=== PATIENT | female | born 1950 | race Caucasian/White ===

== ENCOUNTER → 2021-08-22 | Outpatient (CLI) | payer MEDICARE, OTHER ==
[2021-08-22 11:52] LABS: HCT 43.6 % (34.0-46.0); HGB 14.8 gm/dL (11.4-16.0); MCH 35.4 pg (25.0-35.0); MCV 104.1 fL (80.0-100.0); Macrocytosis Slight; Platelet Count 189 k/uL (150-450); RBC 4.19 m/uL (3.80-5.40); RDW 14.3 % (11.5-15.5); WBC 5.6 k/uL (3.8-10.6)
[2021-08-22 11:53] LABS: INR 0.9 (<1.2); Partial Thromboplastin Time 23.1 sec (22.0-30.0); Prothrombin Time 10.2 sec (9.0-12.0)
[2021-08-22 11:59] LABS: Albumin 3.8 g/dL (3.5-5.0); Calcium 9.4 mg/dL (8.4-10.2); Potassium 4.7 mmol/L (3.5-5.1); Total Bilirubin 0.6 mg/dL (0.2-1.3); Total Protein 6.3 g/dL (6.3-8.2)
[2021-08-22 12:42] LABS: Appearance,Urine Cloudy (Clear); Bacteria,Urine Rare /hpf; Bilirubin,Urine Negative (Negative); Blood,Urine Negative (Negative); Calcium Oxalate Crystals,Urine Occasional /hpf; Color,Urine Yellow; Glucose,Urine (UA) Negative (Negative); Ketones,Urine 1+ (Negative); Leukocyte Esterase,Urine Trace (Negative); Mucus,Urine Rare /hpf; Nitrite,Urine Negative (Negative); PH, Urine 6.5 (5.0-8.0); Protein,Urine Trace (Negative); RBC,Urine 3 /hpf (0-5); Specific Gravity,Urine 1.024 (1.001-1.035); Squamous Epithelial Cell,Urine 3 /hpf (0-4); Urobilinogen,Urine <2.0 mg/dL (<2.0); WBC,Urine 3 /hpf (0-5)
== END | disposition home or self-care (01) ==
LOC: LABPAT 10:04
PROVIDERS: ATTEND Orthopaedic Surgery
DX: Z01.812 Encounter for preprocedural laboratory examination (principal)
CPT/HCPCS: 80053; 81001; 85027; 85610; 85730; 87070

== ENCOUNTER → 2021-08-22 | Outpatient (CLI) | payer MEDICARE, OTHER | END | disposition home or self-care (01) | LOC: LABWHC1 10:10 | PROVIDERS: ATTEND Family Medicine | DX: E11.9 Type 2 diabetes mellitus without complications (principal); Z79.4 Long term (current) use of insulin | CPT/HCPCS: 36415; 83036; 84550 ==

== ENCOUNTER 2021-09-02 08:01 | Day surgery (SDC) | payer MEDICARE, OTHER ==
[2021-08-25 14:44] VITALS: BMI 38.9
[~2021-09-02 08:01] MED LIST: ACETAMINOPHEN TAB 500 MG TAB PO PRN; GABAPENTIN 300 MG CAP PO PRN; LACTATED RINGERS 1,000 ML IV SCH; MELOXICAM 7.5 MG TAB PO PRN; TRANEXAMIC ACID 1,000 MG in SODIUM CHLORIDE 0.9% 100 ML IVPB PRN
[2021-09-02] MEDS ORDERED: ONDANSETRON 4 MG/2 ML VIAL ONE (08:40)
[2021-09-02] MEDS ORDERED: ONDANSETRON 4 MG/2 ML VIAL IVP ONE ×2 (08:45)
[2021-09-02] MEDS ORDERED: DEXAMETHASONE SOD PHOSPHATE 4 MG/ML 1 ML VIAL IV ONE ×2 (08:45)
[2021-09-02 08:50] LABS: Glucose,Whole Blood 150 mg/dL (75-99)
[2021-09-02] MEDS ORDERED: SODIUM CHLORIDE 0.9% 100 ML BAG ONE (09:00)
[2021-09-02] MEDS ORDERED: SODIUM CHLORIDE 0.9% IRRIG 1,000 ML BTL IRRIGATION ONE (09:00)
[2021-09-02] MEDS ORDERED: ROCURONIUM 10 MG/ML (5 ML VIAL) IV ONE (09:00)
[2021-09-02] MEDS ORDERED: HEPARIN SODIUM,PORCINE 10,000 UNIT/ML 1 ML VIAL ONE (09:00)
[2021-09-02] MEDS ORDERED: GLYCOPYRROLATE 0.2 MG/ML 2 ML VIAL ONE (09:00)
[2021-09-02] MEDS ORDERED: TRANEXAMIC ACID 1,000 MG/10 ML VIAL ONE (09:00)
[2021-09-02] MEDS ORDERED: fentaNYL (PF) 50 MCG/ML 2 ML AMP ONE (09:00)
[2021-09-02] MEDS ORDERED: LIDOCAINE 1% INJ 10MG/ML (20 ML MDV) ONE (09:00)
[2021-09-02] MEDS ORDERED: METOPROLOL TARTRATE 5 MG/5 ML VIAL IVP ONE (09:00)
[2021-09-02] MEDS ORDERED: ALBUTEROL HFA INHALER INHALATION ONE (09:00)
[2021-09-02] MEDS ORDERED: SUCCINYLCHOLINE CHLORIDE VIAL 200 MG/10 ML VIAL IV ONE (09:00)
[2021-09-02] MEDS ORDERED: PHENYLEPHRINE-0.9% NACL SYG 1,000 MCG/10 ML SYRINGE ONE (09:00)
[2021-09-02] MEDS ORDERED: NEOSTIGMINE 1 MG/ML 10 ML VIAL ONE (09:00)
[2021-09-02] MEDS ORDERED: PROPOFOL 10 MG/ML 20 ML VIAL IV ONE (09:00)
[2021-09-02] MEDS ORDERED: MIDAZOLAM 2 MG/2 ML VIAL ONE (09:00)
[2021-09-02] MEDS ORDERED: HYDROmorphone (PF) 1 MG/ML ONE (09:00)
[2021-09-02] MEDS ORDERED: ceFAZolin 1,000 MG in SODIUM CHLORIDE 0.9% 1,000 ML IRRIGATION ONE (09:11)
[2021-09-02] MEDS: ROPIVACAINE/EPI/CLONIDINE/KET 50 ML SYRINGE MISCELLANE PRN ×2 (09:38→10:17)
--- NOTE | 2021-09-02 10:27 | P.OP ---
Date of Procedure: 09/02/21 Preoperative Diagnosis: Severe osteoarthritis right hip Postoperative Diagnosis: Severe osteoarthritis right hip Procedure(s) Performed: Right total hip arthroplasty with a direct anterior approach Implants: [employer] Polarstem standard size 2 [employer] R3, 3 hole hemispherical acetabular shell, 52 mm [employer] Reflection 6.5 mm cancellus screw, 20 mm 2 [employer] R3, XLPE 20 acetabular liner [employer] Oxinium femoral head 36 m, -3 All components were press-fit. The articulation is Oxinium on polyethylene. Anesthesia: GETA Surgeon: Nawaf Vee Customer Support Representative #1: Tati Brown Estimated Blood Loss (ml): 225 (145 mL returned with Cell Saver) Pathology: other (Femoral head) Condition: stable Disposition: PACU Indications for Procedure: After failure of conservative treatment we discussed the surgical and nonsurgical treatment options at length. Patient wishes to proceed with a total hip arthroplasty with a direct anterior approach. Complications specific to this procedure were discussed at length, including but not limited to infection, leg length discrepancy, dislocation, nerve injury, and fracture. Covid-19 was also discussed at length with the patient, and they are aware of the current policies and procedures. The patient was given the option of delaying surgery, but they elect to proceed knowing these risks. Patient is aware of all these complications and informed consent was obtained Operative Findings: The operative findings are consistent with severe osteoarthritis of the right hip Description of Procedure: Patient was seen and evaluated in the preoperative area and the consent was reviewed. The operative site was marked with a skin marker. The patient was then brought to the operating room and given preoperative antibiotics intravenously. 1 g of Tranexamic acid was also given intravenously. A general anesthetic was administered by the anesthesia department. The patient was then placed on the [place] table with the bony prominences well-padded. The hip area was then prepped with a ChloraPrep solution and draped in the usual sterile fashion. A universal timeout was then performed, which confirmed the patient's name, surgical site, ALLERGIES, and procedure being performed on the consent. Next the incision site was located at 1 cm distal and 2 cm lateral to the anterior superior iliac spine. The skin and subcutaneous tissues were sharply incised. Incision was carefully dissected down to the fascia overlying the tensor fascia renetta muscle. This fascia was then incised in line with the incision. Care was taken to stay laterally in order to avoid injuring the lateral femoral cutaneous nerve. Next, using blunt finger dissection, the tensor fascia renetta muscle was dissected off its investing fascia. The muscle was then carefully retracted laterally with a cobra retractor over the lateral neck of the femur. Next, the circumflex vessels were identified and cauterized using the AquaMantis device. The anterior hip capsule was then exposed. The capsule was then opened and an inverted T fashion. Cobra retractors were then placed intracapsularly. The retractors were maintained intracapsular throughout the procedure. The proximal femur was then visualized. Fluoroscopic x-rays were then taken in order to evaluate the preoperative leg lengths. A small amount of traction was placed on the leg. The femoral neck was then osteotomized appropriate level above the lesser trochanter. A small wedge of bone was then removed from the remaining femoral head. Next, using a corkscrew the femoral head was removed from the acetabulum. On gross visual inspection, the femoral head had complete loss of articular cartilage and multiple periarticular osteophytes. The femoral head was then measured. Attention was then turned to the acetabulum. The acetabulum was exposed and any remaining labrum was excised. Sequential reaming of the acetabulum was performed using fluoroscopic guidance until there was a good bed of bleeding cancellus bone. When the appropriate size was reached, a trial was then placed. The position and fit of the trial was checked with fluoroscopy. The trial was then removed. Then, using fluoroscopic guidance, the final implant was impacted at 20 of anteversion and 40 of abduction, and fully seated in the acetabulum. 2 screws were then placed in the acetabulum. Again fluoroscopy was used to check position of the screws. Next, the liner was then impacted, with a 20 elevated liner located in the anterior superior quadrant. Component locking was confirmed. Attention was then directed to the femur. With the aid of the [place] table, the femur was externally rotated to approximately 130, extended, and adducted under the opposite leg. A side hook was then placed under the proximal femur, and the side hook elevator was used to elevate the proximal femur while releasing the capsule. Retractors were then placed. A capsular release was performed, as well as a release of the conjoined tendon, which afforded excellent visualization of the proximal femur. Next, a box osteotome was used to lateralize the proximal femur. A tie in hand was then used to locate the femoral canal. Sequential broaching was then performed with appropriate size which afforded excellent fixation in the proximal femur. A trial was then placed with appropriate head and neck, and the hip was gently reduced with the aid of the Ten[place] table. Fluoroscopy was then used to check position of the components, as well as to ensure equal leg lengths. The hip was then gently dislocated and the trials were then removed. Final implants were then impacted and the hip was again reduced. Final fluoroscopic x-rays confirmed that the components were in anatomic position, as well as equal leg lengths. The hip was also taken through range of motion, and found to be stable. The hip was then copiously irrigated with antibiotic solution with pulsatile lavage. The hip was then irrigated with Irrisept solution. The soft tissues were then injected with a ropivacaine solution, which consisted of 246.25 mg of ropivacaine, 0.5 mg of epinephrine, 30 mg of Toradol, 80 g of clonidine, and 48.45 mL of sterile water, for a total of 100 mL of fluid injected. A second dose of 1 g of Tranexamic acid was also given intravenously. Any blood collected by Cell Saver was then returned to the patient at this time. The fascia was then closed with 2-0 strata fix suture. The subcutaneous tissue was closed with 3-0 Vicryl. The subcuticular tissue was closed with 3-0 strata fix suture. The skin was then closed with Exofin skin glue. After the glue and dried, and Optifoam silver impregnated dressing was applied. The patient was then transferred to the recovery room in stable condition. The client account assistant JONH Thao was required due to the complexity of surgery, and the need for skilled surgical processor for positioning, draping, exposure, retraction, and closure of the wound.
--- NOTE | 2021-09-02 10:34 | XR ---
Fluoroscopy INDICATION: Pain FINDINGS: Fluoroscopy time: 31 seconds. Images obtained: 6. IMPRESSIONS: 1. Documentation of fluoroscopy.
[2021-09-02 10:53] VITALS: TEMP 97
[2021-09-02] MEDS ORDERED: HYDROmorphone 0.5 MG/0.5 ML SYRINGE IVP PRN ×2 (10:53)
[2021-09-02] MEDS ORDERED: ONDANSETRON 4 MG/2 ML VIAL IVP PRN (10:53)
[2021-09-02] MEDS ORDERED: NALOXONE 0.4 MG/ML 1 ML VIAL IV PRN (10:53)
[2021-09-02] MEDS ORDERED: HYDROmorphone 0.2 MG/1 ML SYRINGE IVP PRN (10:53)
[2021-09-02] MEDS ORDERED: HYDROcodone/APAP 7.5-325MG 1 EACH TAB PO PRN ×2 (10:54)
[2021-09-02] MEDS ORDERED: SODIUM CHLORIDE 0.9% 1,000 ML IV SCH (11:00)
[2021-09-02 11:12] LABS: Glucose,Whole Blood 213 mg/dL (75-99)
--- NOTE | 2021-09-02 11:17 | XR ---
EXAMINATION TYPE: XR Hip Limited RT DATE OF EXAM: 09/02/2021 COMPARISON: None HISTORY: Right hip replacement TECHNIQUE: AP right hip FINDINGS: Femoral prosthesis has been placed. Acetabular component is present with 2 screws. No acute fractures are evident within the field of view. Postsurgical soft tissue changes are evident. IMPRESSION: 1. No acute fracture post right hip replacement
[2021-09-02 11:23] VITALS: RESP 16
[2021-09-02] MEDS ORDERED: LACTATED RINGERS 1,000 ML IV ONE (12:08)
[2021-09-02] MEDS ORDERED: HYDROcodone/APAP 7.5-325MG 1 EACH TAB PO ONE (13:18)
[2021-09-02 15:20] VITALS: BP 114/73; PULSE 80
--- NOTE | 2021-09-02 15:50 | FL ---
Fluoroscopy INDICATION: Pain FINDINGS: Fluoroscopy time: 31 seconds. Images obtained: 0. IMPRESSIONS: 1. Documentation of fluoroscopy.
== END 2021-09-02 15:04 | disposition home health service (06) ==
LOC: OR 08:01
PROVIDERS: ATTEND Orthopaedic Surgery
DX: M16.11 Unilateral primary osteoarthritis, right hip (principal)
CPT/HCPCS: 27130; 97162; 86891; 86900; 86901; 86850; 73501; P9022; C1776; J1100; J0690 ×2; J2405; 88300

== ENCOUNTER 2022-03-02 07:16 | Observation (INO) | payer MEDICARE, OTHER ==
[2022-03-02] MEDS ORDERED: DIPH,PERTUS(ACELL)TETVAC-LF 0.5 ML VIAL IM ONE (07:53)
[2022-03-02] MEDS ORDERED: ONDANSETRON 4 MG/2 ML VIAL IVP PRN (08:52)
[2022-03-02] MEDS ORDERED: HYDROmorphone 0.5 MG/0.5 ML SYRINGE IVP PRN (08:52)
[2022-03-02] MEDS ORDERED: NALOXONE 0.4 MG/ML 1 ML VIAL IV PRN (08:52)
--- NOTE | 2022-03-02 08:52 | ED ---
Upper Extremity HPI - General Chief Complaint: Extremity Injury, Upper Stated Complaint: Left wrist injury Time Seen by Provider: 03/02/22 07:39 Source: patient, RN notes reviewed, old records reviewed Mode of arrival: wheelchair Limitations: no limitations - History of Present Illness Initial Comments: 72-year-old female presents emergency Department with chief complaint of left wrist fracture. Patient states that she has neuropathy get up and neurological bathroom tripped and fell. Patient fell onto the carpeted surface. Patient had no head injury no loss conscious. Patient was seen at [facility] for evaluation of this wrist injury in which patient had distal radius fracture and which this was reduced. There was a question of possible open fracture as she had opening on the ulnar aspect. Patient was given 1 g of Kefzol. Patient was splinted and advised to follow-up with her surgery Center. Patient states she has very close relationship with orthopedics associate in which she is seen Dr. Vee, Dr. Garcia and other orthopedic surgeons. Patient denies any other associated injuries. - Related Data Home Medications Medication Instructions Recorded Confirmed Albuterol Inhaler [Ventolin Hfa 2 puff INHALATION RT-QID 08/25/21 03/02/22 Inhaler] Aspirin [Adult Low Dose Aspirin EC] 81 mg PO DAILY 08/25/21 03/02/22 Atorvastatin [Lipitor] 40 mg PO HS 08/25/21 03/02/22 Gabapentin 600 mg PO TID 08/25/21 03/02/22 Metoprolol Succinate [Toprol XL] 25 mg PO DAILY 08/25/21 03/02/22 Montelukast [Singulair] 10 mg PO HS 08/25/21 03/02/22 Potassium Chloride ER [K-Dur 10] 10 meq PO DAILY 08/25/21 03/02/22 Zolpidem [Ambien] 5 mg PO HS PRN 08/25/21 03/02/22 metFORMIN HCL [Glucophage] 1,000 mg PO DAILY 08/25/21 03/02/22 Albuterol Nebulized [Ventolin 2.5 mg INHALATION RT-Q4H 03/02/22 03/02/22 Nebulized] Allopurinol [Zyloprim] 100 mg PO DAILY 03/02/22 03/02/22 Budesonide/Formoterol Fumarate 2 puff INHALATION RT-BID 03/02/22 03/02/22 [Symbicort 80-4.5 Mcg Inhaler] DULoxetine HCL [Cymbalta] 60 mg PO DAILY 03/02/22 03/02/22 Allergies Allergy/AdvReac Type Severity Reaction Status Date / Time No Known Allergies Allergy Verified 03/02/22 08:37 Review of Systems ROS Statement: Those systems with pertinent positive or pertinent negative responses have been documented in the HPI. ROS Other: All systems not noted in ROS Statement are negative. Past Medical History Past Medical History: COPD, Diabetes Mellitus, Hypertension Additional Past Medical History / Comment(s): gout History of Any Multi-Drug Resistant Organisms: None Reported Past Surgical History: Coronary Bypass/CABG, Orthopedic Surgery Additional Past Surgical History / Comment(s): hip replacement, D/C Past Psychological History: No Psychological Hx Reported Smoking Status: Current every day smoker Past Alcohol Use History: Occasional Past Drug Use History: None Reported General Exam Limitations: no limitations General appearance: alert, in no apparent distress Head exam: Present: atraumatic, normocephalic, normal inspection Respiratory exam: Present: normal lung sounds bilaterally. Absent: respiratory distress, wheezes, rales, rhonchi, stridor Cardiovascular Exam: Present: regular rate, normal rhythm, normal heart sounds. Absent: systolic murmur, diastolic murmur, rubs, gallop, clicks Extremities exam: Present: other (Left arm is in short arm splint there is some swelling noted of the digits Refill less than 2 seconds and normal sensation) Course Vital Signs 03/02/22 07:32 Temperature 98 F Pulse Rate 84 Respiratory 16 Rate Blood Pressure 130/79 O2 Sat by Pulse 96 Oximetry Medical Decision Making - Medical Decision Making I did review the x-rays pre-and postreduction patient has adequate reduction, his neurovascular intact. Patient records reviewed patient did receive 1 g of Kefzol. Patient's tetanus is updated here. I did discuss case with Dr. Garcia on-call for orthopedics associate in which he recommends patient to be nothing by mouth, continuation of antibiotics, pain control. Disposition Clinical Impression: Distal radius fracture, left Disposition: ADMITTED IP TO THIS [facility] Condition: Stable Referrals: Isidra George MD [Primary Care Provider] - 1-2 days Time of Disposition: 08:52
[2022-03-02 09:05] LABS: Basophils # (A) 0.1 k/uL (0-0.2); Basophils % (A) 1 %; Eosinophils # (A) 0.1 k/uL (0-0.7); Eosinophils % (A) 1 %; HCT 44.9 % (34.0-46.0); HGB 14.2 gm/dL (11.4-16.0); Lymphocytes # (A) 1.2 k/uL (1.0-4.8); Lymphocytes % (A) 16 %; MCH 32.3 pg (25.0-35.0); MCHC 31.6 g/dL (31.0-37.0); MCV 102.1 fL (80.0-100.0); Macrocytosis Slight; Monocytes # (A) 0.5 k/uL (0-1.0); Monocytes % (A) 6 %; Neutrophils # (A) 5.9 k/uL (1.3-7.7); Neutrophils % (A) 75 %; Platelet Count 226 k/uL (150-450); RBC 4.39 m/uL (3.80-5.40); RDW 14.6 % (11.5-15.5); WBC 7.8 k/uL (3.8-10.6)
[2022-03-02 09:42] LABS: ALT 16 U/L (4-34); AST 42 U/L (14-36); African American GFR (CKD) >90 (>60 ml/min/1.73 sqM); Albumin 4.5 g/dL (3.5-5.0); Alkaline Phosphatase 110 U/L (38-126); Anion Gap 11 mmol/L; Blood Urea Nitrogen 15 mg/dL (7-17); Calcium 9.4 mg/dL (8.4-10.2); Carbon Dioxide 22 mmol/L (22-30); Chloride 104 mmol/L (98-107); Glucose 136 mg/dL (74-99); Non-African American GFR(CKD) 85 (>60 ml/min/1.73 sqM); Potassium 4.9 mmol/L (3.5-5.1); Sodium 137 mmol/L (137-145); Total Bilirubin 0.8 mg/dL (0.2-1.3)
[2022-03-02 10:28] LABS: INR 0.9 (<1.2); Partial Thromboplastin Time 22.9 sec (22.0-30.0); Prothrombin Time 10.2 sec (9.0-12.0)
[2022-03-02] MEDS: HYDROmorphone 1 MG/ML 1 ML SYRINGE IVP PRN ×2 (11:40→15:35)
[2022-03-02] MEDS ORDERED: ALBUTEROL NEBULIZED 2.5 MG/3 ML INHALATION SCH (12:00)
[2022-03-02] MEDS ORDERED: ALBUTEROL HFA INHALER INHALATION SCH (12:00)
[2022-03-02 12:13] LABS: Glucose,Whole Blood 146 mg/dL (75-99)
--- NOTE | 2022-03-02 13:17 | P.HPOR ---
History of Present Illness H&P Date: 03/02/22 Chief Complaint: Left wrist pain status post fall; left distal radius fracture Patient is a very pleasant 72-year-old female who is seen and examined at the bedside for further evaluation of her left wrist. She sustained a fall inside her home last night falling and landing on her left wrist. She presented to the emergency department in [place], [place] for further evaluation. She was diagnosed with a displaced distal radius fracture. Fracture was reduced and she was placed in a splint. The position of her fracture has significantly improved status post reduction. There were told to present to a tertiary facility for further evaluation of her wrist as they state she had her ulnar styloid puncture the skin. Her splint remains intact of the left upper extremity. The splint is clean and dry. She has been keeping her left upper extremity elevated. Dr. Yadiel Garcia has been trying to contact the ER physician at [facility] for further discussion of the patient. She denies any other injuries at the time of the fall. She denies loss of consciousness. She does admit to neuropathy in her bilateral feet and feels that she may have an unsteady due to her neuropathy while ambulating at night causing her to fall. Past Medical History Past Medical History: COPD, Diabetes Mellitus, Hypertension Additional Past Medical History / Comment(s): gout History of Any Multi-Drug Resistant Organisms: None Reported Past Surgical History: Coronary Bypass/CABG, Orthopedic Surgery Additional Past Surgical History / Comment(s): hip replacement, D/C Past Psychological History: No Psychological Hx Reported Smoking Status: Current every day smoker Past Alcohol Use History: Occasional Past Drug Use History: None Reported Medications and Allergies Home Medications Medication Instructions Recorded Confirmed Type Albuterol Inhaler [Ventolin Hfa 2 puff INHALATION RT-QID 08/25/21 03/02/22 History Inhaler] Aspirin [Adult Low Dose Aspirin EC] 81 mg PO DAILY 08/25/21 03/02/22 History Atorvastatin [Lipitor] 40 mg PO HS 08/25/21 03/02/22 History Gabapentin 600 mg PO TID 08/25/21 03/02/22 History Metoprolol Succinate [Toprol XL] 25 mg PO DAILY 08/25/21 03/02/22 History Montelukast [Singulair] 10 mg PO HS 08/25/21 03/02/22 History Potassium Chloride ER [K-Dur 10] 10 meq PO DAILY 08/25/21 03/02/22 History Zolpidem [Ambien] 5 mg PO HS PRN 08/25/21 03/02/22 History metFORMIN HCL [Glucophage] 1,000 mg PO DAILY 08/25/21 03/02/22 History Albuterol Nebulized [Ventolin 2.5 mg INHALATION RT-Q4H 03/02/22 03/02/22 History Nebulized] Allopurinol [Zyloprim] 100 mg PO DAILY 03/02/22 03/02/22 History Budesonide/Formoterol Fumarate 2 puff INHALATION RT-BID 03/02/22 03/02/22 History [Symbicort 80-4.5 Mcg Inhaler] DULoxetine HCL [Cymbalta] 60 mg PO DAILY 03/02/22 03/02/22 History Allergies Allergy/AdvReac Type Severity Reaction Status Date / Time No Known Allergies Allergy Verified 03/02/22 08:37 Physical Examination Physical Exam: Patient is awake, alert, and oriented 3 Vital signs stable Good chest excursion with deep inspiration and expiration Splint is clean, dry, and intact over the left wrist and forearm Left upper extremity sling is intact Left wrist and forearm is currently elevated Evidence of some swelling over the fingers of the left hand Patient is able to wiggle all fingers of her left hand without significant d ifficulty Neurovascularly intact left upper extremity Results Pertinent studies: X-rays the left wrist taken outside facility on 03/02/2022: Evidence of left distal radius fracture with significant improvement of position status post reduction with evidence of splint intact; no obvious fracture at the ulnar styloid - Labs Labs: Abnormal Lab Results - Last 24 Hours (Table) 03/02/22 03/02/22 03/02/22 Range/Units 08:58 08:58 12:12 MCV 102.1 H (80.0-100.0) fL Glucose 136 H (74-99) mg/dL POC Glucose (mg/dL) 146 H (75-99) mg/dL AST 42 H (14-36) U/L H & H 03/02/22 Range/Units 08:58 Hgb 14.2 (11.4-16.0) gm/dL Hct 44.9 (34.0-46.0) % Coagulation 03/02/22 Range/Units 10:05 INR 0.9 (<1.2) Result Diagrams: 03/02/22 08:58 03/02/22 08:58 Assessment and Plan Assessment: Assessment: Status post fall Left distal radius displaced fracture currently in splint intact Reported puncture of the skin by ulnar styloid Left wrist pain Bilateral lower extremity neuropathy COPD Diabetes mellitus Hypertension Obesity (1) Status post fall Current Visit: Yes Status: Acute Code(s): Z91.81 - HISTORY OF FALLING SNOMED Code(s): 376619392 (2) Left wrist pain Current Visit: Yes Status: Acute Code(s): M25.532 - PAIN IN LEFT WRIST SNOMED Code(s): 81285608 (3) Skin puncture Current Visit: Yes Status: Acute Code(s): UEU7621 - SNOMED Code(s): 779694133 (4) Lower extremity neuropathy Current Visit: Yes Status: Acute Code(s): G57.90 - UNSPECIFIED MONONEUROPATHY OF UNSPECIFIED LOWER LIMB SNOMED Code(s): 138427744 (5) COPD (chronic obstructive pulmonary disease) Current Visit: Yes Status: Acute Code(s): J44.9 - CHRONIC OBSTRUCTIVE PULMONARY DISEASE, UNSPECIFIED SNOMED Code(s): 39615941 (6) Diabetes mellitus Current Visit: Yes Status: Acute Code(s): E11.9 - TYPE 2 DIABETES MELLITUS WITHOUT COMPLICATIONS SNOMED Code(s): 68965784 (7) Hypertension Current Visit: Yes Status: Acute Code(s): I10 - ESSENTIAL (PRIMARY) HYPERTENSION SNOMED Code(s): 11458814 (8) Obesity (BMI 30-39.9) Current Visit: Yes Status: Acute Code(s): E66.9 - OBESITY, UNSPECIFIED SNOMED Code(s): 937834608 (9) Distal radius fracture, left Current Visit: Yes Status: Acute Code(s): S52.502A - UNSP FRACTURE OF THE LO WER END OF LEFT RADIUS, INIT SNOMED Code(s): 766158359 Plan: Plan: 1. Patient sustained a significantly displaced left distal radius fracture status post fall in a home early this morning. She presented to [facility] ergency Department for further evaluation. She was found to have this significantly displaced left distal radius fracture which was reduced and she was placed in a splint. The position of her left distal radius fracture has had significant improvement following reduction. Patient was discharged but told to follow-up with a tertiary facility for further evaluation as they stated her ulnar styloid may have punctured the skin at her wrist. She presented to [facility] for further evaluation. X-ray imaging was loaded into synapse showing significant improvement of her fracture at the left distal radius status post reduction. Her splint remains clean, dry, and intact. She i s neurovascularly intact at the left upper extremity. She is able to wiggle all fingers of the left hand without significant difficulty. She does have some swelling at her fingers. She also has a sling intact at the left upper extremity. She has been started on IV antibiotic medications given a reported history of ulnar styloid puncturing of the skin. Currently, we are trying to contact the emergency physician who treated and evaluated her in [place] to further discuss her injury. At this time, she will continue to be nothing by mouth until we determine a plan of care proceeding forward. She will continue IV antibiotics as scheduled. She may continue pain control with IV Dilaudid as prescribed as needed for pain control. She is encouraged to continue to keep her left wrist and forearm elevated in the implant ice for comfort support as needed. We will continue to follow patient closely. Time with Patient: Greater than 30 (Including obtaining history, physical examination, reviewing of imaging, and dictation.)
[2022-03-02] MEDS: metFORMIN 500 MG TAB PO SCH (14:55)
[2022-03-02] MEDS: DULoxetine HCL 60 MG CAPSULE.DR PO SCH (14:55)
[2022-03-02] MEDS: METOPROLOL SUCCINATE (ER) 25 MG TAB.ER.24H PO SCH (14:56)
[2022-03-02] MEDS: allopurinoL 100 MG TAB PO SCH (14:56)
[2022-03-02] MEDS: POTASSIUM CHLORIDE ER 10 MEQ TAB.ER.PRT PO SCH (14:56)
[2022-03-02] MEDS: ASPIRIN 81 MG PO SCH (14:56)
[2022-03-02] MEDS: GABAPENTIN 300 MG CAP PO SCH ×2 (14:58→20:43)
[2022-03-02] MEDS ORDERED: ALBUTEROL NEBULIZED 2.5 MG/3 ML INHALATION PRN (15:43)
[2022-03-02] MEDS ORDERED: HYDROcodone/APAP 5-325MG 1 EACH TAB PO PRN (16:40)
[2022-03-02 17:26] LABS: Glucose,Whole Blood 146 mg/dL (75-99)
[2022-03-02] MEDS: HYDROcodone/APAP 5-325MG 1 EACH TAB PO PRN (18:02)
[2022-03-02] MEDS: SYMBICORT 80-4.5 MCG INHALER INHALATION SCH (20:02)
[2022-03-02 20:59] LABS: Glucose,Whole Blood 128 mg/dL (75-99)
[2022-03-02] MEDS ORDERED: MONTELUKAST 10 MG TAB PO SCH (21:00)
[2022-03-02] MEDS ORDERED: ATORVASTATIN 40 MG TAB PO SCH (21:00)
[2022-03-03] MEDS: HYDROcodone/APAP 5-325MG 1 EACH TAB PO PRN ×2 (03:59→10:21)
[2022-03-03 07:13] LABS: Glucose,Whole Blood 126 mg/dL (75-99)
[2022-03-03] MEDS: SYMBICORT 80-4.5 MCG INHALER INHALATION SCH (07:27)
[2022-03-03 07:54] VITALS: BP 120/80; PULSE 84; RESP 14; TEMP 98.2
[2022-03-03] MEDS: ASPIRIN 81 MG PO SCH (08:05)
[2022-03-03] MEDS: DULoxetine HCL 60 MG CAPSULE.DR PO SCH (08:05)
[2022-03-03] MEDS: metFORMIN 500 MG TAB PO SCH (08:05)
[2022-03-03] MEDS: GABAPENTIN 300 MG CAP PO SCH (08:05)
[2022-03-03] MEDS: POTASSIUM CHLORIDE ER 10 MEQ TAB.ER.PRT PO SCH (08:05)
[2022-03-03] MEDS: METOPROLOL SUCCINATE (ER) 25 MG TAB.ER.24H PO SCH (08:05)
[2022-03-03] MEDS: allopurinoL 100 MG TAB PO SCH (08:05)
--- NOTE | 2022-03-03 08:40 | P.DS ---
Providers Date of admission: 03/02/22 08:48 Expected date of discharge: 03/03/22 Attending physician: Melissa Garcia Primary care physician: Isidra George - Discharge Diagnosis(es) (1) Status post fall Current Visit: Yes Status: Acute (2) Left wrist pain Current Visit: Yes Status: Acute (3) Skin puncture Current Visit: Yes Status: Acute (4) Lower extremity neuropathy Current Visit: Yes Status: Acute (5) COPD (chronic obstructive pulmonary disease) Current Visit: Yes Status: Acute (6) Diabetes mellitus Current Visit: Yes Status: Acute (7) Hypertension Current Visit: Yes Status: Acute (8) Obesity (BMI 30-39.9) Current Visit: Yes Status: Acute (9) Distal radius fracture, left Current Visit: Yes Status: Acute Hospital Course: This is a pleasant 72-year-old female who presented with left grade 1 open distal radius and ulnar fracture with displaced distal radius fracture currently in splint intact. There is report of puncture of the skin by ulnar styloid. The splint was removed yesterday showing evidence of a wound at the ulnar aspect proximal to the radiocarpal crease. And she underwent a bedside irrigation and debridement with copious irrigation. She is continue with IV antibiotics since that time. She was fitted back into her splint in the splint has remained intact. Patient feels the pain in her left wrist has been controlled since that time. She is finishing her last bag of IV antibiotics this morning. We did discuss at this time we will clear her for discharge home. She should keep the splint over the left wrist clean, dry, and intact. She may elevate and apply ice over the splint for comfort support as needed. She is also given a prescription for Keflex 500 mg 1 4 times a day, dispensed #28. This will be sent to her regular pharmacy per her request. We discussed she should take this prescription until completion. She should avoid any lifting or activities with the left wrist. She may do light activities with her fingers. She may continue to utilize a sling for comfort support of her left upper extremity as needed. We did discuss in detail she should keep her splint intact until her follow-up appointment. We'll plan to see her this coming 03/06/2022 at [facility]. She will follow-up with Dr. Yadiel Garcia. Patient's other medical diagnoses include bilateral lower extremity neuropathy, COPD, diabetes mellitus, hypertension, and obesity. Physical Exam on day of discharge: Patient is awake, alert, and oriented 3 Vital signs stable Good chest excursion with deep inspiration and expiration Splint is clean, dry, and intact over the left wrist and forearm Left upper extremity sling is intact Left wrist and forearm is currently elevated Evidence of some swelling over the fingers of the left hand Patient is able to wiggle all fingers of her left hand without significant difficulty Neurovascularly intact left upper extremity Procedures: Bedside irrigation and debridement with copious irrigation of the left wrist Patient Condition at Discharge: Stable Plan - Discharge Summary Discharge Rx Participant: No New Discharge Prescriptions: New Cephalexin [Keflex] 500 mg PO Q6HR #28 cap No Action Albuterol Inhaler [Ventolin Hfa Inhaler] 2 puff INHALATION RT-QID Montelukast [Singulair] 10 mg PO HS Gabapentin 600 mg PO TID Atorvastatin [Lipitor] 40 mg PO HS Aspirin [Adult Low Dose Aspirin EC] 81 mg PO DAILY Zolpidem [Ambien] 5 mg PO HS PRN PRN Reason: Insomnia Budesonide/Formoterol Fumarate [Symbicort 80-4.5 Mcg Inhaler] 2 puff INHALATION RT-BID Potassium Chloride ER [K-Dur 10] 10 meq PO DAILY Metoprolol Succinate [Toprol XL] 25 mg PO DAILY metFORMIN HCL [Glucophage] 1,000 mg PO DAILY Allopurinol [Zyloprim] 100 mg PO DAILY Albuterol Nebulized [Ventolin Nebulized] 2.5 mg INHALATION RT-Q4H DULoxetine HCL [Cymbalta] 60 mg PO DAILY Discharge Medication List Albuterol Inhaler [Ventolin Hfa Inhaler] 2 puff INHALATION RT-QID 08/25/21 [History] Aspirin [Adult Low Dose Aspirin EC] 81 mg PO DAILY 08/25/21 [History] Atorvastatin [Lipitor] 40 mg PO HS 08/25/21 [History] Gabapentin 600 mg PO TID 08/25/21 [History] Metoprolol Succinate [Toprol XL] 25 mg PO DAILY 08/25/21 [History] Montelukast [Singulair] 10 mg PO HS 08/25/21 [History] Potassium Chloride ER [K-Dur 10] 10 meq PO DAILY 08/25/21 [History] Zolpidem [Ambien] 5 mg PO HS PRN 08/25/21 [History] metFORMIN HCL [Glucophage] 1,000 mg PO DAILY 08/25/21 [History] Albuterol Nebulized [Ventolin Nebulized] 2.5 mg INHALATION RT-Q4H 03/02/22 [History] Allopurinol [Zyloprim] 100 mg PO DAILY 03/02/22 [History] Budesonide/Formoterol Fumarate [Symbicort 80-4.5 Mcg Inhaler] 2 puff INHALATION RT-BID 03/02/22 [History] DULoxetine HCL [Cymbalta] 60 mg PO DAILY 03/02/22 [History] Cephalexin [Keflex] 500 mg PO Q6HR #28 cap 03/03/22 [Rx] Follow up Appointment(s)/Referral(s): Isidra George MD [Primary Care Provider] - 1-2 days Melissa Garcia DO [Doctor of Osteopathic Medicine] - 03/06/22 (Patient may follow-up with Dr. Yadiel Garcia at [facility] on 03/06/2022 following discharge. ) Activity/Diet/Wound Care/Special Instructions: 1. Keep splint at the left wrist clean, dry, and intact 2. Keep left splint elevated and may apply ice over the splint for comfort support as needed 3. Avoid lifting activities with the left wrist 4. Patient may do light activities with fingers of the left hand 5. Patient is prescribed Keflex 500 mg. Patient should take this prescription as prescribed until completion 6. Patient may use sling for the left upper extremity for comfort support as needed Discharge Disposition: HOME SELF-CARE
== END 2022-03-03 10:24 | disposition home or self-care (01) ==
LOC: EC 07:16 → 6NMEDSUR 08:48
PROVIDERS: ADMIT Orthopaedic Surgery Orthopaedic Surgery of the Spine; ATTEND Orthopaedic Surgery Orthopaedic Surgery of the Spine
DX: S52.692B Other fracture of lower end of left ulna, initial encounter for open fracture type I or II (principal); S52.592B Other fractures of lower end of left radius, initial encounter for open fracture type I or II; I10 Essential (primary) hypertension; J44.9 Chronic obstructive pulmonary disease, unspecified; E11.41 Type 2 diabetes mellitus with diabetic mononeuropathy; F17.200 Nicotine dependence, unspecified, uncomplicated; E66.9 Obesity, unspecified; Z68.30 Body mass index [BMI] 30.0-30.9, adult; M10.9 Gout, unspecified; Z79.899 Other long term (current) drug therapy; Z79.84 Long term (current) use of oral hypoglycemic drugs; Z79.51 Long term (current) use of inhaled steroids; Z79.82 Long term (current) use of aspirin; Z23 Encounter for immunization; Z96.649 Presence of unspecified artificial hip joint; Z91.81 History of falling; Y93.9 Activity, unspecified; W01.0XXA Fall on same level from slipping, tripping and stumbling without subsequent striking against object, initial encounter; Z95.1 Presence of aortocoronary bypass graft; Y92.008 Other place in unspecified non-institutional (private) residence as the place of occurrence of the external cause
CPT/HCPCS: 99285; 96376; 96366 ×2; 96365; 96375; 36415; 94640 ×2; 80053; 85025; 85610; 85730; 90715; 90471; G0378 ×2; J0690 ×3; J1170 ×2